=== PATIENT | male | born 1970 | race Caucasian/White ===

== ENCOUNTER 2019-05-17 16:24 | Inpatient (IN) | payer OTHER ==
[~2019-05-17] VITALS: Ht 180.3 cm; Wt 169.6 kg
[2019-05-17 16:27] VITALS: BP 163/100
[2019-05-17 16:53] LABS: HEMATOCRIT 38.4 % (42.0-52.0); HEMOGLOBIN 13.4 gm/dL (14.0-18.0); MCHC 34.9 g/dL (28.0-37.0); MCV 91.4 fL (80.0-100.0); NUCLEATED RBCS 0 /100WBC; PLATELET COUNT* 282 thou/uL (150-400); RDW-CV 13.6 % (10.5-14.5)
[2019-05-17 17:02] LABS: ANION GAP 7 mmol/L (7-16); APTT 26.4 Seconds (25.0-31.3); BUN 12 mg/dL (7-18); CALCIUM 8.3 mg/dL (8.5-10.1); CHLORIDE 100 mmol/L (98-107); CO2 28 mmol/L (21-32); CREATININE 1.3 mg/dL (0.6-1.3); GLUCOSE 112 mg/dL (70-99); POTASSIUM 3.7 mmol/L (3.5-5.1); SODIUM 135 mmol/L (136-145)
[2019-05-17 17:12] LABS: ABSOLUTE BASOPHILS 0.2 thou/uL (0.0-0.2); ABSOLUTE LYMPHOCYTES 0.9 thou/uL (0.8-5.3); ABSOLUTE MONOCYTES 0.7 thou/uL (0.0-1.2); ABSOLUTE NEUTROPHILS 15.3 thou/uL (1.6-8.1)
[2019-05-17 17:14] LABS: ALBUMIN 3.6 g/dL (3.4-5.0); ALKALINE PHOSPHATASE 123 U/L (46-116); LIPASE 63 U/L (73-393); NT-PRO BRAIN NAT PEPTIDE 78 pg/mL (<300); PLATELET ESTIMATE ADEQUATE; SGOT 37 U/L (15-37); SGPT 58 U/L (30-65); TOTAL BILIRUBIN 0.5 mg/dL (<0.1-1.0); TOTAL PROTEIN 7.8 g/dL (6.4-8.2); TROPONIN-I LEVEL <0.06 ng/mL (<0.06)
[2019-05-17 21:25] VITALS: BP 160/83
[2019-05-17 21:28] VITALS: BP 178/92
[2019-05-17 23:23] LABS: URINE BILIRUBIN NEGATIVE (Negative); URINE BLOOD NEGATIVE (Negative); URINE CLARITY CLEAR; URINE COLOR YELLOW; URINE GLUCOSE-RANDOM NEGATIVE (Negative); URINE KETONES NEGATIVE (Negative); URINE LEUKOCYTES-REFLEX NEGATIVE (Negative); URINE NITRITE-REFLEX NEGATIVE (Negative); URINE PROTEIN NEGATIVE (Negative); URINE SPECIFIC GRAVITY >= 1.030 (1.005-1.030); URINE UROBILINOGEN 0.2 E.U./dl (0.2-1.0)
[2019-05-17 23:30] LABS: AMP/METHAMP POSITIVE (Negative); BARBITURATES Negative (Negative); BENZODIAZEPINES Negative (Negative); COCAINE Negative (Negative); METHADONE Negative (Negative); OPIATES Negative (Negative); PCP Negative (Negative); THC Negative (Negative)
[2019-05-18 00:22] VITALS: BP 143/77
--- NOTE | 2019-05-18 03:59 | NUR ---
RECEIVED PT FROM ER PER CART AT APPROX 2125. PT IS AWAKE AND ORIENTED X4. VSS ON 2L OF O2/NC. ASSISTANT THERAPY AIDE IN PLACE TRACING ST. ADMISSION ASSESSMENT DONE AND CHARTED. FEBRILE EPISODES NOTED, Tmax 100.7, TYLENOL GIVEN PER OCT. PT C/O HEADACHE RELIEVED BY TRAMADOL GIVEN PER OCT. PT IS ORIENTED ON THE USE OF CALL LIGHT, AND ON ROOM SET UP. PT IS ADVISED TO HAVE NOTHING BY MOUTH AFTER MIDNIGHT. PT IS ABLE TO SLEEP MOST OF THE NIGHT. CLOSELY MONITORED.
[2019-05-18 04:00] VITALS: BP 145/76
[2019-05-18 07:54] VITALS: BP 130/69
--- NOTE | 2019-05-18 09:44 | EKG ---
[place] [address] ELECTROCARDIOGRAM REPORT Name: SANTACRUZESTELLE S Room: [address] ADM IN [facility].#: [id number] Admission: 05/17/19 Attend Phys: Britany Benavidez MD Discharge: Date of : 74 Report #: [id number] THIS REPORT FOR: //name// [facility] ED Test Date: 2019-05-17 Test Time: 16:28:45 Pat Name: ESTELLE SANTACRUZ Department: Room: [facility] Gender: M Director Hardware: : 1970 Requested By: Giovanni Kraus Order Number: [id number] MD: Gilmer De La O Measurements Intervals [place] Rate: 109 P: 22 CA: 140 QRS: 45 QRSD: 97 T: 22 QT: 328 QTc: 442 Interpretive Statements Sinus tachycardia No previous ECG available for comparison Electronically Signed On 05-18-2019 9:44:48 CDT by Gilmer De La O [email or web address] <ELECTRONICALLY SIGNED> By: Gilmer De La O MD, [facility] 05/18/19 0944 [id number] [id number] Gilmer De La O MD, FACC /EPI
[2019-05-18 10:08] LABS: BE -0.3 mmol/L (-2 to +3); PCO2 42.3 mmHg (35.0-45.0); PO2 90.2 mmHg (75.0-100.0); pH 7.386 (7.340-7.450)
--- NOTE | 2019-05-18 11:30 | NUR ---
MET WITH PT TO DISCUSS HOME SITUATION/DC PLANNING. PT DROWSY BUT ABLE TO ANSWER A FEW QUESTIONS. LIVES WITH CHILDREN, WORKS AND IS INDEPENDENT. [place] HERE TO VISIT WITH PT IS LISTED UNISURED. PT HAS [facility] INSURANCE BUT NOT EFFECTIVE UNTIL MAY 30. WILL FOLLOW
[2019-05-18 11:32] LABS: HEMATOCRIT 36.2 % (42.0-52.0); HEMOGLOBIN 12.1 gm/dL (14.0-18.0); MCH 30.6 pg (26.0-34.0); MCHC 33.4 g/dL (28.0-37.0); MCV 91.4 fL (80.0-100.0); MPV 7.9 fl. (7.2-11.1); RBC 3.96 mil/uL (4.50-6.00); RDW-CV 13.6 % (10.5-14.5); WBC 12.4 thou/uL (4.0-11.0)
[2019-05-18 11:33] VITALS: BP 166/82
[2019-05-18 11:46] LABS: CALCIUM 8.4 mg/dL (8.5-10.1); CREATININE 1.1 mg/dL (0.6-1.3); POTASSIUM 3.6 mmol/L (3.5-5.1)
[2019-05-18 11:51] LABS: CHOLESTEROL 132 mg/dL (<200); HDL CHOLESTEROL 41 mg/dL (>40); LDL CHOLESTEROL 75 mg/dL (<100); TC:HDL 3.2 Ratio (Not establshd); TRIGLYCERIDE 84 mg/dL (<150); VLDL 17 mg/dL (<40)
[2019-05-18 11:56] LABS: SERUM ASSESSMENT Clear
--- NOTE | 2019-05-18 14:15 | NUR ---
WOUND CARE NOTE: CONSULT RECEIVED FOR LYMPHEDEMA. PATIENT PRESENTS WITH CELLULITIS TO THE LEFT LOWER LEG AT [facility], CIRCUMFIRENTIALLY. HOT TO TOUCH, INFLAMMED, 2+ PITTING EDEMA. NO OPEN WOUNDS NOTED. REDNESS IS OUTLINED, EXTENDS OUTLINE SUPERIORLY. PATIENT ALSO HAS EDEMA TO RIGHT LOWER EXTREMITY. MEASURED LEGS AND APPLIED SIZE G TUBIGRIP, DOUBLE LAYER TO BOTH LEGS AFTER LOTION WAS APPLIED. 50.5CM AT [place]F BILATERALLY 29.5 ANKLE L 28.5 ANKLE r 27.5 INSTEP BILATTERALLY PALPABLE PEDAL PULSES 2+ EDUCATED PATIENT ON COMPRESSION AND S/S TO NOTIFY RN IF IT IS TOO TIGHT, COMMUNICATED UNDERSTANDING. PATIENT ALSO HAS WHAT APPEARS TO BE INFLAMMATION TO THE LOWER ABDOMEN, HOT TO TOUCH, BUT DID NOT VISUALIZE ANY SKIN OPENINGS. RECOMMEND SKIN CARES TO BILATERAL LEGS DAILY, APPLY LOTION, THEN APPLY DOUBLE LAYER TUBIGRIPS. MAY NEED A SMALLER SIZE ONCE SOME OF THE SWELLING RESOLVES KEEP LEGS ELEVATED MONITOR CELLULITIC AREAS CLOSELY FOR ANY NEGATIVE CHANGES
--- NOTE | 2019-05-18 14:27 | 2DMMODE ---
[place] [address] 2 D/M-MODE ECHOCARDIOGRAM Name: ESTELLE SANTACRUZ Room: [address] IN [facility]#: [id number] Admission: 05/17/19 Attend Phys: Britany Benavidez, Discharge: Date of : 74 Date of Service: 05/18/19 1427 Report #: [id number] THIS REPORT FOR: //name// APPROVED REPORT Study performed: 05/18/2019 10:30:29 EXAM: Comprehensive 2D, Doppler, and color-flow Echocardiogram Patient Location: In-Patient Room #: [facility] Status: routine BSA: 2.68 HR: 82 bpm BP: 130/69 mmHg Rhythm: NSR Other Information Technically limited study due to body habitus, poor endocardial definition. Indications Chest Pain Hypertension/HDD Echo Enhancing Agent Indication: Endocardial border delineation Agent(s) / Amount(s) Used: Optison 3 cc 2D Dimensions IVSd: 13.65 (7-11mm) LVOT Diam: 22.65 (18-24mm) LVDd: 62.93 mm PWd: 13.40 (7-11mm) Ascending Ao: 34.10 (22-36mm) LVDs: 34.87 (25-40mm) Aortic Root: 36.64 mm Volumes Left Atrial Volume (Systole) LA ESV Index: 35.00 mL/m2 Aortic Valve AoV Peak Amauri.: 1.81 m/s AO Peak Gr.: 13.09 mmHg LVOT Max P.07 mmHg AO Mean Gr.: 7.57 mmHg LVOT Mean P.82 mmHg LVOT Max V: 1.33 m/s AO V2 VTI: 33.78 cm LVOT Mean V: 0.91 m/[place] [address] 2 D/M-MODE ECHOCARDIOGRAM Name: ESTELLE SANTACRUZ Room: [address] IN ..#: [id number] Admission: 05/17/19 Attend Phys: Britany Benavidez, Discharge: Date of : 74 Date of Service: 05/18/19 1427 Report #: [id number] THERESA (VTI): 3.11 cm2 LVOT V1 VTI: 26.08 cm Mitral Valve E/A Ratio: 1.76 MV Decel. Time: 233.64 ms MV E Max Amauri.: 1.20 m/s MV PHT: 67.76 ms MVA (PHT): 3.25 cm2 TDI E/Lateral E': 6.67 E/Medial E': 7.50 Medial E' Amauri.: 0.16 m/s Lateral E' Amauri.: 0.18 m/s Pulmonary Valve PV Peak Amauri.: 1.18 m/s PV Peak Gr.: 5.56 mmHg Left Ventricle The left ventricle is normal size. There is normal LV segmental wall motion. Mild concentric left ventricular hypertrophy. Left ventricular systolic function is normal. LVEF is 55-60%. The left ventricular diastolic function is normal. Right Ventricle The right ventricle is normal size. The right ventricular systolic function is normal. Atria Left atrium is mildly dilated. Right atrium is mildly dilated. Aortic Valve The aortic valve is normal in structure. No aortic regurgitation is present. There is no aortic valvular stenosis. Mitral Valve The mitral valve is normal in structure. There is no mitral valve regurgitation noted. No evidence of mitral valve stenosis. Tricuspid Valve The tricuspid valve is normal in structure. Trace tricuspid regurgitation. Unable to assess PA pressure. Pulmonic Valve The pulmonary valve is normal in structure. There is no pulmonic [place] [address] 2 D/M-MODE ECHOCARDIOGRAM Name: ESTELLE SANTACRUZ Room: [address]#: [id number] Admission: 05/17/19 Attend Phys: Britany Benavidez, Discharge: Date of : 74 Date of Service: 05/18/19 1427 Report #: [id number] Great Vessels The aortic root is normal in size. IVC is normal in size and collapses >50% with inspiration. Pericardium There is no pericardial effusion. <Conclusion> The left ventricle is normal size. Mild concentric left ventricular hypertrophy. Left ventricular systolic function is normal. LVEF is 55-60%. The left ventricular diastolic function is normal. Left atrium is mildly dilated. Right atrium is mildly dilated. IVC is normal in size and collapses >50% with inspiration. <ELECTRONICALLY SIGNED> By: Isai Khan MD, FACC 05/18/19 1427 1427 1427 Isai Khan MD, FACC /INF
[2019-05-18 16:12] VITALS: BP 113/54
--- NOTE | 2019-05-18 18:15 | NUR ---
PT UP TO BATH ROOM SEVERAL TIME AND TOLERATING PO WELL. WILL CONTINUE TO ASSESS.
[2019-05-18 19:50] VITALS: BP 142/84
[2019-05-18 23:08] LABS: GLYCOHEMOGLOBIN (HGB A1C) 5.6 % (4.8-5.6)
[2019-05-19 00:39] VITALS: BP 121/67
[2019-05-19 04:53] LABS: HEMATOCRIT 39.1 % (42.0-52.0); HEMOGLOBIN 12.9 gm/dL (14.0-18.0); MCH 30.5 pg (26.0-34.0); MCHC 33.1 g/dL (28.0-37.0); MPV 8.4 fl. (7.2-11.1); RBC 4.24 mil/uL (4.50-6.00); WBC 8.9 thou/uL (4.0-11.0)
[2019-05-19 05:06] LABS: CALCIUM 8.5 mg/dL (8.5-10.1); CREATININE 1.1 mg/dL (0.6-1.3); MAGNESIUM 2.3 mg/dL (1.8-2.4); POTASSIUM 3.8 mmol/L (3.5-5.1)
--- NOTE | 2019-05-19 06:57 | NUR ---
PT ALERT AND ORIENTED. VSS ON RA. ASSESSMENT DOCUMENTED. PT COMPLAINED OF DUMONT UNRELIEVED BY TYLENOL AND TRAMADOL. I PAGED DR PIMENTEL AND SHE PUT IN ORDERS FOR IBUPROFEN AND A DOSE OF EXCEDRIN. PT SAID IBUPROFEN HELPED A LITTLE BIT. EXCEDRIN IS NOT IN THE PIXIES. WAITING FOR RETAIL TEAM LEADER TO BRING IT UP. PT SLEPT MOST OF SHIFT. CALL LIGHT WITHIN REACH. HOURLY ROUNDINGS MADE. WILL CONTINUE TO MONITOR.
[2019-05-19 08:00] VITALS: BP 136/90
--- NOTE | 2019-05-19 11:44 | NUR ---
LEG CARE PERFORMED AFTER SHOWER. TURBIGRIPS REAPLLIED. PT LEGS APPEAR WARM TO TOUCH , PARTIALLY RED, AND +2PITTING EDEMA. NO MOISTURE, NO DRYNESS, SKIN IS INTACT FREE FROM ANY SCARS, TEARS, OR WOUND. PT ASSISTED WITH TRANSFER FROM BED TO CHAIR. CALL LIGHT AT REACH. IV LIVE FLUSHED, PATENT. REMAINS SINUS ON THE DEAD MAIL CHECKER. HR 74 , WILL CONTINUE TO MONITOR
[2019-05-19 11:45] VITALS: BP 157/81
--- NOTE | 2019-05-19 11:54 | NUR ---
ASSUMED PT CARE REPORT RECEIVED FROM NURSE. PT IS ALERT SLEEPING IN HOSPITAL BED. AFIB ON DIRECTOR PHARMACY SERVICES. ON RA. COMPLAINS OF HEADACHE AT 10:00 AM.PT HAS NO OTHER COMPLAINT. ATE BREAKFAST . EXCEDRIN TO BE GIVEN AFTER PATIENT GETS OUT OF SHOWER. ROCEPHIN GIVEN ORDERED. WILL CONTINUE TO MONITOR PT
[2019-05-19 16:46] VITALS: BP 166/83
[2019-05-19 20:00] VITALS: BP 174/80
[2019-05-20] VITALS: BP 121/73
[2019-05-20 04:00] VITALS: BP 113/62
--- NOTE | 2019-05-20 04:59 | NUR ---
PT CARE ASSUMED AT 1930. SAT MAINTAINED IN RA. ALERT AND ORIENTED X4. C/O PAIN, MEDICATION GIVEN PER EMAR. CALL LIGHT WITHIN REACH AND BED IN LOW POSITION. HOURLY ROUNDING DONE FOR PT SAFETY.
[2019-05-20 05:03] LABS: HEMATOCRIT 40.4 % (42.0-52.0); HEMOGLOBIN 13.3 gm/dL (14.0-18.0); MCH 30.1 pg (26.0-34.0); MCHC 32.9 g/dL (28.0-37.0); MCV 91.6 fL (80.0-100.0); MPV 8.3 fl. (7.2-11.1); RBC 4.41 mil/uL (4.50-6.00); RDW-CV 13.9 % (10.5-14.5); WBC 13.5 thou/uL (4.0-11.0)
[2019-05-20 05:17] LABS: CALCIUM 9.2 mg/dL (8.5-10.1); MAGNESIUM 2.2 mg/dL (1.8-2.4)
[2019-05-20 08:55] VITALS: BP 145/93
--- NOTE | 2019-05-20 09:00 | NUR ---
ASSUMED CARE AFTER REPORT APPROX 0730. [employer], ABLE TO EXPRESS NEEDS TO STAFF. MANAGER COMMERCIAL SALES IN PLACE, SR. O2 SATS 93% RA. ENCOURAGED PATIENT TO WALK IN HALLWAYS DURING THE DAY. PATIENT WITHOUT C/O PAIN, N/V, SOA OR OTHER DISTRESS. PATIENT REPORTS FEELING TIRED. CALL LIGHT WITHIN REACH. HOURLY ROUNDING FOR SAFETY AND PATIENT NEEDS.
[2019-05-20] MEDS ORDERED: LASIX 40 MG TAB40 M1 PO (12:06)
[2019-05-20] MEDS ORDERED: ASPIR 8181 MG PO (12:06)
[2019-05-20] MEDS ORDERED: BACTRIM DS TAB1 EAC1 PO (12:06)
[2019-05-20] MEDS ORDERED: COZAAR 50 MG TA50 M1 PO (12:06)
--- NOTE | 2019-05-20 12:28 | NUR ---
Following for d/c planning needs. Spoke with physician, nurse and pt. Patient said his insurance will be effective on May 30. He has spoken with insurance person at work. Pt said he will make sleep study appointment after his insurance becomes effective and also find PCP in network with his insurance after he receives his insurance cards. Pt said he is able to afford his medication. No other needs identified.
[2019-05-20 12:32] VITALS: BP 145/93
--- NOTE | 2019-05-20 14:20 | NUR ---
PATIENT WITH COMPLETE DC ORDER. REVIEWED DC INSTRUCTIONS AND MED LIST WITH PATIENT. ANSWERED QUESTIONS TO PATIENT SATISFACTION. SAMPLE MAKER ORIGINAL REMOVED, CLEANED AND PLACED IN POCKET FOR ROOM 224. IV DISCONTINUED. PATIENT IN POSSESSION OF ALL BELONGINGS. PATIENT AMBULATED WITH STAFF OFF UNIT TO FRONT ENTRANCE. PATIENT'S FRIEND TO TRANSPORT PATIENT TO HOME VIA PERSONAL VEHICLE.
== END 2019-05-20 14:15 | disposition home or self-care (01) | DRG 603 ==
LOC: M.ERS 16:24 → M.2W 18:12 → M.TBA-ER 18:12 → M.2W 21:30
PROVIDERS: Emergency Medicine; Nurse Practitioner Psychiatric/Mental Health; Registered Nurse; ADMIT Internal Medicine
DX: L03.311 Cellulitis of abdominal wall (principal); F15.20 Other stimulant dependence, uncomplicated; Z68.43 Body mass index [BMI] 50.0-59.9, adult; I10 Essential (primary) hypertension; E66.01 Morbid (severe) obesity due to excess calories; G47.33 Obstructive sleep apnea (adult) (pediatric); Z83.3 Family history of diabetes mellitus; Z82.49 Family history of ischemic heart disease and other diseases of the circulatory system; Z79.899 Other long term (current) drug therapy

== ENCOUNTER 2021-02-10 23:04 | Emergency (ER) | payer OTHER ==
[~2021-02-10] VITALS: Ht 182.9 cm; Wt 158.8 kg
[~2021-02-10 23:04] MED LIST: ASPIR 8181 MG PO; BACTRIM DS TAB1 EAC1 PO; COZAAR 50 MG TA50 M1 PO; LASIX 40 MG TAB40 M1 PO
[2021-02-11] MEDS ORDERED: ZPAK PO (01:10)
[2021-02-11] MEDS ORDERED: MEDROLDOSEPACK PO (01:10)
[2021-02-11] MEDS ORDERED: PROAIR HFA8.5 GM INH (01:10)
[2021-02-11 03:20] LABS: PCO2 48.1 mmHg (35.0-45.0); PO2 74.6 mmHg (75.0-100.0); pH 7.339 (7.340-7.450)
[2021-02-11 04:25] VITALS: BP 146/89
== END 2021-02-11 04:25 | disposition home or self-care (01) ==
LOC: M.ERS 23:04
PROVIDERS: Personal Emergency Response Attendant
DX: J98.01 Acute bronchospasm (principal); Z20.822 Contact with and (suspected) exposure to COVID-19; J06.9 Acute upper respiratory infection, unspecified; I10 Essential (primary) hypertension; Z79.899 Other long term (current) drug therapy